=== PATIENT | female | born 1990 | race Caucasian/White ===

== ENCOUNTER 2016-06-12 11:48 | Emergency (ER) | payer SELFPAY ==
[~2016-06-12 11:48] MED LIST: ABILIFY; ABILIFY5 MG; ACID CONTROL10 MG; ALBUTEROL; ALLOPURINOL; BACTRIM DS TABL1 TAB PO; BENADRYL25 MG/TA1 NG; BIRTH CONTROL; COLACE-T100 MG; COLACE100 MG PO; CYCLOBENZAPRINE10 MG PO; DAY TIME SOFTG1 EACH PO; DEPRESSION MED; ENALAPRIL; FERROUS SU325 ( 65; FERROUS SULFATE; IBUPROFEN600 M1 PO; IBUPROFEN800 MG PO; LABETALOL HCL100 MG; LEVAQUIN500 M1 PO; LEXAPRO PO; LOESTRIN 24 FE1 TAB; MOTRIN600 MG PO; NAPROSYN500 M1 PO; NO HOME MEDICATION XX; NORCO 5-325 TA1 EACH PO; NORCO 5/325 TAB1 TAB PO; PEPCID AC20 MG PO; PERCOCET 5/3251 TAB PO; PRENATAL 19 TA1 EAC1 PO; PRENATAL PLUS T1 TA; PRENATAL1 EACH PO; PRENATAL1 TAB; PYRIDIUM200 MG PO; STRATTERA; TRAZODONE HCL100 MG; TYLENOL325 MG PO; VICODIN 5/500 T1 TAB PO; VISTARIL50 MG PO; WELLBUTRIN SR150 MG; WELLBUTRIN XL150 MG; ZOFRAN ODT4 MG PO; ZOLOFT; ZOLOFT100 MG; ZOLOFT50 MG; [UNRECOGNIZED DRUG - OTHER]; [UNRECOGNIZED DRUG - OTHER]; [UNRECOGNIZED DRUG - OTHER]; [UNRECOGNIZED DRUG - REMARK]
== END 2016-06-12 12:01 | disposition left against medical advice (07) ==
LOC: EDMED 11:48
DX: Z53.21 Procedure and treatment not carried out due to patient leaving prior to being seen by health care provider (principal)